=== PATIENT | female | born 1985 | race Caucasian/White ===

== ENCOUNTER 2020-04-17 22:00 | Inpatient (IN) ==
[2020-04-17] MEDS ORDERED: Naloxone 0.4 MG/ML INJ IVP PRN (22:17)
[2020-04-17] MEDS ORDERED: Metoclopramide 10 MG/2 ML VIAL IVP PRN (22:17)
[2020-04-17] MEDS ORDERED: Famotidine 20 MG/2 ML VIAL IVP PRN (22:17)
[2020-04-17] MEDS ORDERED: Ondansetron 4 MG/2 ML VIAL IVP PRN (22:17)
[2020-04-17] MEDS ORDERED: *HR* Nalbuphine 10 MG/ML AMPUL IV PRN (22:17)
[2020-04-17] MEDS ORDERED: Lidocaine 1% 20 ML MDV INFILT PRN (22:17)
[2020-04-17] MEDS ORDERED: Oxytocin 20 units/ LR 1000 mL 20 UNIT/1,000 ML BAG IVC SCH (22:30)
[2020-04-17] MEDS ORDERED: 0.9 % Sodium Chloride 1,000 ML IVC SCH (22:30)
[2020-04-17 23:28] LABS: Basophils # 0.1 K/mcL (0.0-0.2); Basophils % 0.5 %; Eosinophils # 0.2 K/mcL (0.0-0.6); Eosinophils % 1.3 %; Hematocrit 39.9 % (35.3-44.9); Hemoglobin 13.3 g/dL (11.5-15.4); Immature Granulocytes % 1.4 % (0-4); Lymphocytes # 2.5 K/mcL (0.6-4.6); Lymphocytes % 16.6 %; Mean Corpuscular HGB Conc 33.3 g/dL (31.6-35.5); Mean Corpuscular Hemoglobin 29.6 pg (28.0-33.3); Mean Corpuscular Volume 88.7 fL (83.0-100.0); Mean Platelet Volume 10.4 fL (9.4-12.4); Monocytes # 1.1 K/mcL (0.0-1.3); Monocytes % 7.1 %; Platelet Count 260 K/mcL (140-400); Red Cell Distribution Width 13.3 % (11.5-14.5); Segmented Neutrophils % 73.1 %; White Blood Count 15.1 K/mcL (4.3-11.1)
[2020-04-17 23:32] LABS: Amphetamine Screen,Urine Negative ng/mL (Cutoff=1000); Barbiturate Screen,Urine Negative ng/mL (Cutoff=200); Benzodiazepines Screen,Urine Negative ng/mL (Cutoff=200); Cannabinoid Screen,Urine Negative ng/mL (Cutoff = 50); Cocaine Screen,Urine Negative ng/mL (Cutoff= 300); Opiate Screen,Urine Negative ng/mL (Cutoff=300); Phencyclidine Screen,Urine Negative ng/mL (Cutoff=25)
[2020-04-18 00:15] LABS: Adenovirus Not Detected (Not Detect); Bordetella Pertussis Not Detected (Not Detect); Chlamydophila pneumoniae Not Detected (Not Detect); Coronavirus 229E Not Detected (Not Detect); Coronavirus HKU1 Not Detected (Not Detect); Coronavirus NL63 Not Detected (Not Detect); Coronavirus OC43 Not Detected (Not Detect); Human Metapneumovirus Not Detected (Not Detect); Human Rhinovirus/Enterovirus Not Detected (Not Detect); Influenza A Subtype 2009 H1 Not Detected (Not Detect); Influenza B Not Detected (Not Detect); Mycoplasma pneumoniae Not Detected (Not Detect); Parainfluenza Virus 1 Not Detected (Not Detect); Parainfluenza Virus 2 Not Detected (Not Detect); Parainfluenza Virus 3 Not Detected (Not Detect); Parainfluenza Virus 4 Not Detected (Not Detect); Respiratory Syncytial Virus Not Detected (Not Detect); SARS-CoV-2 Not Detected (Not Detect)
[2020-04-18] MEDS ORDERED: polyethylene glycoL 3350 17 GM POWD.PACK PO PRN (07:06)
[2020-04-18] MEDS ORDERED: Ringers Solution, Lactated 1,000 ML ONE ×2 (07:45→15:35)
[2020-04-18] MEDS ORDERED: *HR* Morphine Sulfate/PF 10 MG/10 ML AMPUL ONE (08:31)
[2020-04-18] MEDS ORDERED: *HR* FentaNYL (PF) 100 MCG/2 ML VIAL ONE (08:31)
[2020-04-18] MEDS ORDERED: *HR* Phenylephrine 10 MG/ML VIAL ONE (08:35)
[2020-04-18] MEDS ORDERED: CeFAZolin 2,000 MG/50 ML BAG IVPB ONE (08:42)
[2020-04-18] MEDS ORDERED: Lidocaine -MPF 2% 5 ML VIAL ONE (10:21)
[2020-04-18] MEDS ORDERED: Ondansetron 4 MG/2 ML VIAL ONE (10:21)
[2020-04-18] MEDS ORDERED: *HR* Meperidine 25 MG/ML SYRINGE IVP PRN (10:51)
[2020-04-18] MEDS ORDERED: Naloxone 0.4 MG/ML INJ IVP PRN (10:51)
[2020-04-18] MEDS ORDERED: *HR* OxyCODONE Immed Rel 5 MG TABLET PO PRN (10:51)
[2020-04-18] MEDS ORDERED: Ondansetron 4 MG/2 ML VIAL IVP PRN ×2 (10:51→15:32)
[2020-04-18] MEDS ORDERED: *HR* FentaNYL (PF) 100 MCG/2 ML VIAL IVP PRN (10:51)
[2020-04-18] MEDS ORDERED: *HR* Promethazine 25 MG/ML VIAL ONE (11:28)
[2020-04-18] MEDS ORDERED: Acetaminophen IV 1,000 MG/100 ML BAG IVPB ONE (11:30)
[2020-04-18] MEDS ORDERED: *HR* Midazolam HCl 2 MG/2 ML VIAL ONE (12:06)
[2020-04-18] MEDS ORDERED: Ketamine *HR* 500 MG/10 ML MDV ONE (12:07)
[2020-04-18] MEDS ORDERED: metroNIDAZOLE 500 MG TABLET PO SCH ×2 (15:32→21:00)
[2020-04-18] MEDS ORDERED: Rho Immune Globulin 1,500 UNIT SYRINGE IM ONE (15:32)
[2020-04-18] MEDS ORDERED: 0.9 % Sodium Chloride 1,000 ML IVC SCH (15:32)
[2020-04-18] MEDS ORDERED: Sennosides 8.6 MG TABLET PO PRN (15:32)
[2020-04-18] MEDS ORDERED: cephALEXin 500 MG CAPSULE PO SCH ×2 (15:32→21:00)
[2020-04-18] MEDS ORDERED: Metoclopramide 10 MG/2 ML VIAL IVP PRN (15:32)
[2020-04-18] MEDS ORDERED: Oxytocin 20 units/ LR 1000 mL 20 UNIT/1,000 ML BAG IVC SCH (15:32)
[2020-04-18] MEDS ORDERED: Ringers Solution, Lactated 1,000 ML IVC ONE (15:43)
[2020-04-18] MEDS: Oxytocin 20 units/ LR 1000 mL 20 UNIT/1,000 ML BAG IVC SCH ×2 (16:46→23:48)
[2020-04-18 16:52] LABS: Hematocrit 29.4 % (35.3-44.9)
[2020-04-18 16:56] LABS: Hemoglobin 9.5 g/dL (11.5-15.4)
[2020-04-18] MEDS: *HR* Metformin 500 MG TABLET PO SCH (17:45)
[2020-04-18] MEDS: Ibuprofen 600 MG TABLET PO PRN (17:53)
[2020-04-18] MEDS: Simethicone 80 MG TAB.CHEW PO PRN (20:39)
[2020-04-18] MEDS: *HR* OxyCODONE/APAP 5/325 TABLET PO PRN (23:15)
[2020-04-19] MEDS: *HR* OxyCODONE/APAP 5/325 TABLET PO PRN ×4 (03:37→21:41)
[2020-04-19] MEDS: Ibuprofen 600 MG TABLET PO PRN ×3 (03:37→21:41)
[2020-04-19 05:17] LABS: Basophils # 0.1 K/mcL (0.0-0.2); Basophils % 0.4 %; Eosinophils # 0.1 K/mcL (0.0-0.6); Eosinophils % 0.5 %; Hematocrit 19.9 % (35.3-44.9); Immature Granulocytes % 1.1 % (0-4); Lymphocytes # 2.7 K/mcL (0.6-4.6); Lymphocytes % 19.9 %; Mean Corpuscular HGB Conc 33.2 g/dL (31.6-35.5); Mean Corpuscular Hemoglobin 30.6 pg (28.0-33.3); Mean Corpuscular Volume 92.1 fL (83.0-100.0); Mean Platelet Volume 10.9 fL (9.4-12.4); Monocytes % 7.4 %; Neutrophils # 9.4 K/mcL (1.6-8.9); Platelet Count 204 K/mcL (140-400); Red Blood Count 2.16 M/mcL (3.82-4.97); Red Cell Distribution Width 13.4 % (11.5-14.5); Segmented Neutrophils % 70.7 %; White Blood Count 13.3 K/mcL (4.3-11.1)
[2020-04-19 05:18] LABS: Hemoglobin 6.6 g/dL (11.5-15.4)
[2020-04-19] MEDS ORDERED: Lanolin 7 G OINT...G. TP PRN (06:14)
[2020-04-19] MEDS: Oxytocin 20 units/ LR 1000 mL 20 UNIT/1,000 ML BAG IVC SCH (06:36)
[2020-04-19] MEDS: *HR* Metformin 500 MG TABLET PO SCH (08:18)
[2020-04-19] MEDS: cephALEXin 500 MG CAPSULE PO SCH ×3 (08:18→21:41)
[2020-04-19] MEDS: BuPROPion XL (24 HR) 150 MG TABLET PO SCH (08:18)
[2020-04-19] MEDS: metroNIDAZOLE 500 MG TABLET PO SCH ×3 (08:18→21:41)
[2020-04-19] MEDS: Prenatal Vit/FA 1 EACH TABLET PO SCH (08:18)
[2020-04-19] MEDS: Simethicone 80 MG TAB.CHEW PO PRN ×3 (08:22→23:36)
[2020-04-19] MEDS ORDERED: BUPROPION HCL PO SCH (09:00)
[2020-04-19] MEDS ORDERED: NALTREXONE HCL PO SCH (09:00)
[2020-04-19 13:06] LABS: Basophils # 0.1 K/mcL (0.0-0.2); Basophils % 0.4 %; Eosinophils # 0.2 K/mcL (0.0-0.6); Hematocrit 20.7 % (35.3-44.9); Hemoglobin 6.8 g/dL (11.5-15.4); Immature Granulocytes % 1.3 % (0-4); Lymphocytes # 2.7 K/mcL (0.6-4.6); Mean Corpuscular HGB Conc 32.9 g/dL (31.6-35.5); Mean Corpuscular Hemoglobin 30.4 pg (28.0-33.3); Mean Corpuscular Volume 92.4 fL (83.0-100.0); Mean Platelet Volume 10.1 fL (9.4-12.4); Monocytes # 1.2 K/mcL (0.0-1.3); Monocytes % 7.8 %; Neutrophils # 10.9 K/mcL (1.6-8.9); Platelet Count 223 K/mcL (140-400); Red Blood Count 2.24 M/mcL (3.82-4.97); Red Cell Distribution Width 13.5 % (11.5-14.5); Segmented Neutrophils % 71.5 %; White Blood Count 15.2 K/mcL (4.3-11.1)
[2020-04-20] MEDS: *HR* OxyCODONE/APAP 5/325 TABLET PO PRN (03:39)
[2020-04-20] MEDS: Ibuprofen 600 MG TABLET PO PRN ×3 (03:39→15:29)
[2020-04-20 05:05] LABS: Basophils # 0.1 K/mcL (0.0-0.2); Basophils % 0.5 %; Eosinophils # 0.2 K/mcL (0.0-0.6); Eosinophils % 1.3 %; Hematocrit 18.9 % (35.3-44.9); Hemoglobin 6.3 g/dL (11.5-15.4); Immature Granulocytes % 1.7 % (0-4); Lymphocytes # 2.3 K/mcL (0.6-4.6); Lymphocytes % 17.4 %; Mean Corpuscular HGB Conc 33.3 g/dL (31.6-35.5); Mean Corpuscular Volume 93.1 fL (83.0-100.0); Mean Platelet Volume 10.5 fL (9.4-12.4); Monocytes # 1.1 K/mcL (0.0-1.3); Neutrophils # 9.4 K/mcL (1.6-8.9); Platelet Count 234 K/mcL (140-400); Red Blood Count 2.03 M/mcL (3.82-4.97); Red Cell Distribution Width 13.8 % (11.5-14.5); Segmented Neutrophils % 71.1 %; White Blood Count 13.2 K/mcL (4.3-11.1)
[2020-04-20] MEDS ORDERED: 0.9 % Sodium Chloride 250 ML ONE ×2 (07:43→10:21)
[2020-04-20] MEDS: Prenatal Vit/FA 1 EACH TABLET PO SCH (08:15)
[2020-04-20] MEDS: Simethicone 80 MG TAB.CHEW PO PRN ×2 (08:16→15:29)
[2020-04-20] MEDS: metroNIDAZOLE 500 MG TABLET PO SCH ×2 (08:16→15:29)
[2020-04-20] MEDS: BuPROPion XL (24 HR) 150 MG TABLET PO SCH (08:16)
[2020-04-20] MEDS: cephALEXin 500 MG CAPSULE PO SCH ×2 (08:16→15:30)
[2020-04-20] MEDS: *HR* Metformin 500 MG TABLET PO SCH (08:17)
[2020-04-20 10:42] VITALS: BP 143/89
[2020-04-20 17:37] LABS: Hematocrit 23.2 % (35.3-44.9); Hemoglobin 7.6 g/dL (11.5-15.4)
== END 2020-04-20 18:27 | disposition home or self-care (01) | DRG 787 ==
LOC: 1NENULAB 22:02 → 1NENUOBS 04-18 13:26
PROVIDERS: ADMIT Obstetrics & Gynecology; ATTEND Obstetrics & Gynecology